=== PATIENT | female | born 1985 | race Caucasian/White ===

== ENCOUNTER 2017-10-27 17:08 | Emergency (ER) | payer MEDICAID ==
[~2017-10-27] VITALS: Ht 160 cm; Wt 85.7 kg
[2017-10-27 17:17] VITALS: BP_SYST 122
[2017-10-27] MEDS ORDERED: KETOROLAC TROMETHAMINE 30 MG VIAL IM ONE (18:45)
[2017-10-27] MEDS ORDERED: DEXAMETHASONE SOD PHOSPHATE 10 MG/ML VIAL IM ONE (18:45)
[2017-10-27] MEDS ORDERED: ACETAMINOPHEN 500 MG TABLET PO ONE (18:45)
[2017-10-27 19:13] VITALS: BP_SYST 122
[2017-10-27 20:02] LABS: STREPTOCOCCUS A SCREEN (RAPID) NEGATIVE (NEGATIVE)
[2017-10-27 20:10] LABS: INFLUENZA A&B ANTIGEN SCREEN NEGATIVE FOR A & B (NEGATIVE)
== END 2017-10-27 19:13 | disposition home or self-care (01) ==
LOC: SED 17:08
DX: B34.9 Viral infection, unspecified (principal); Z87.442 Personal history of urinary calculi
CPT/HCPCS: 36415; 81025; 86403; 86710; 87081; 96372; 99284; J1100; J1885